=== PATIENT | female | born 1945 | race Caucasian/White ===

== ENCOUNTER 2017-02-14 13:01 | Outpatient (CLI) | payer MEDICARE, OTHER ==
[2017-02-14] MEDS ORDERED: BUFFERED LIDOCAINE 10 ML SYRINGE IU ONE (15:29)
--- NOTE | 2017-02-19 14:18 | Ultrasound Report ---
THERAPEUTIC ULTRASOUND-GUIDED ABDOMINAL PARACENTESIS: 02/14/2017 COMPARISON: No comparison at this facility. INDICATION: Breast cancer. Abdominal ascites. TECHNIQUE - FINDINGS Risks and benefits of the procedure were discussed with the patient, and she desired to proceed. A timeout was performed which identified the patient's name and date of with largest pocket of fluid seen in the right lower quadrant. The patient was prepped and draped in normal sterile fashion. Using a 4-Urdu Lnud-H-Dgqfiien device, 1175 mL serosanguineous fluid was removed from the abdomen. Trace blood loss during the procedure. There were no immediate complications and the patient was discharged to home. IMPRESSION: SUCCESSFUL PARACENTESIS. MTDD
== END 2017-02-14 13:02 | disposition home or self-care (01) ==
LOC: DI 13:01
PROVIDERS: ATTEND Nurse Practitioner Adult Health
DX: R18.8 Other ascites (principal); C50.919 Malignant neoplasm of unspecified site of unspecified female breast
CPT/HCPCS: 49083

== ENCOUNTER 2017-02-15 07:43 | Outpatient (CLI) | payer MEDICARE, OTHER ==
--- NOTE | 2017-02-15 12:38 | MRI Report ---
EXAM: MRI BRAIN WITHOUT CONTRAST EXAM DATE: 02/15/2017 09:09 AM. CLINICAL HISTORY: Abnormal gait, inability to walk. Memory loss. Breast cancer. Renal failure, estima sadia GFR 20. COMPARISON: None. TECHNIQUE: Multiplanar, multisequence T1-weighted and fluid-sensitive MR sequences of the brain were performed. Sequences optimized for routine evaluation. Other: None. IV Contrast: None. FINDINGS: Brain Volume: Mild diffuse atrophy. Parenchyma/Dura: No restricted diffusion to suggest acute or recent ischemic infarct. 4 mm subcortical nodular focus of hypointensity on the gradient echo sequence without associated andrea a or mass effect. This is nonspecific. A chronic microhemorrhage is suspected. No other evidence for cerebral hemorrhage. No mass effect, midline shift or abnormal subdural fluid collection. Moderately prominent nonspecific white matter disease. There is extensive amorphous abnormal T2 hyper intensity in the isacc. There are multiple scattered patchy and nodular foci of T2 hyperintense signal changes in the deep and periventricular white matter of both cerebral hemispheres. There is, however, no clear evidence for focal vasogenic edema or space-occupying intracranial mass. T2 hyperintense signal changes are nonspecific and brain tumor/metastasis cannot be completely ruled out but findings are not typical of metastatic disease though MRI follow-up may be considered to assu re stability of white matter disease that is likely secondary to aging and chronic microangiopathy. Ventricles/Cisterns: No hydrocephalus. No abnormal extra-axial fluid collection or hemorrhage. Sinuses: No evidence for acute paranasal sinus disease. Minimal nonspecific right lateral mastoid flu id signal. Bones: No evidence for expansile mass in the calvarium. Marrow signal in the skull; however, is somew hat heterogeneous. This is nonspecific. Pathologic marrow signal replacement in the skull is difficul t to fully rule out. Note that there is also a region of asymmetric T2 hyperintensity in the right la teral skull that might correspond to the region of subtle asymmetric increased tracer accumulation on recent whole body bone scan localizing to the upper right lateral calvarial region. Other: The major arterial skull base flow voids are present. IMPRESSION: 1.No evidence for acute intracranial abnormality. 2. Prominent white matter disease, more likely from aging and chronic microangiopathy than tumor but follow-up could be considered to establish stability. 3. Tumor metastasis to the calvarium not ruled out. [facility] Referring Provider Line: [phone] SITE ID: [id number]
== END 2017-02-15 07:44 | disposition home or self-care (01) ==
LOC: DI 07:43
PROVIDERS: ATTEND Internal Medicine Hematology & Oncology
DX: R41.3 Other amnesia (principal); R26.9 Unspecified abnormalities of gait and mobility; R90.82 White matter disease, unspecified
CPT/HCPCS: 70551

== ENCOUNTER 2017-02-26 06:09 | Day surgery (SDC) | payer MEDICARE, OTHER ==
[2017-02-26] MEDS ORDERED: ceFAZolin 2 GM/50 ML 2 GM/50 ML BAG IV ONE (06:32)
[2017-02-26] MEDS ORDERED: LACTATED RINGERS 1,000 ML IV ONE (06:40)
[2017-02-26] MEDS ORDERED: BUPIVACAINE 0.5% PF 30 ML VIAL SUBQ ONE ×2 (07:41→08:27)
--- NOTE | 2017-02-26 08:43 | OPERATIVE REPORT ---
Operative Report - General Procedure Date: 02/26/17 Planned Procedure: Portacath placement Pre-Op Diagnosis: Stage IV breast cancer Procedure Performed: Portacath placement (LEFT subclavian vein) Post Op Diagnosis: Same - Procedure Note Primary Surgeon: Butch Renteria MD Anesthesia Provider: Butch Gordon MD Anesthesia Technique: General ET tube, Local (5 mL 1/2% marcaine) IV Fluids (mL): 500 Estimated Blood Loss (mL): 5 Complications: None. - Other Other Information/Narrative: OPERATIVE DESCRIPTION/REPORT: After verbal and written informed consent was obtained detailing the risks of infection, bleeding requiring transfusion with its risks, nerve injury, and , and after I met with the patient confirming the surgery and the site of the surgery and after initialing the site of the surgery with a surgical marker , the patient was brought to the operative suite and placed supine on the operating table. Great care was taken to avoid pressure points to prevent pressure necrosis or nerve injury. Monitoring devices were applied along with TEDs and pneumatic compressive stockings (to prevent DVT). The patient received preoperative antibiotics for surgical prophylaxis. Dr. Butch Gordon sedated and anethetized the patient for the entire procedure. The patient was prepped and draped in the usual sterile manner. With the patient draped my initials were clearly visible. A "time in" then confirmed that the patient was identified with 3 identifiers (name, date and medical record number), the history and physical was in the chart, the signed consent confirming the procedure was in the chart, the patient was in the correct position, the aforementioned prophylactic measures were in place or given, we had the correct personnel and equipment to complete the procedure and that anesthesia, surgery and nursing were given an opportunity to express any concerns. With the agreement of everyone in the room, we proceeded with the operation. After the subclavian region was anesthetized using % marcaine and the patient placed in Trendelenberg position, an [employer] Smartport kit ( Catalog #[id number], Lot #[id number]) was opened. The finder needle was inserted into the subclavian vein taking great care to place it just under the clavicle in order to minimize the risk of pneumothorax. When good venous blood return was obtained, the wire was placed through the needle and into the vein without difficulty. Cardiac irritability confirmed that the catheter was correctly going down towards the heart. Below and lateral to the needle insertion site, the area was anesthetized again using % marcaine and a transverse incision was made just large enough to accommodate the port. This incision was taken down to the fascia using sharp dissection and the area for the port was created using blunt downward dissection. Meticulous hemostasis was obtained using Bovie electrocautery. A knife was inserted along the wire to widen the insertion site and this was further dilated using a Nataliia. The port was flushed with heparinized saline and placed in the pouch and the catheter was then passed to the needle opening using the passer. The catheter was then measured against the patients anterior chest and cut so that the tip would lie 2 cm below the manubrial-sternal junction. The port was secured to the fascia using a 3-0 Prolene on the side of the opening of the port. The catheter was then wiped and wrapped with a heparinized soaked 4x4. The dilator and sheath were then carefully inserted over the wire and the dilator and wire withdrawn. The catheter was then inserted into the sheath and the sheath was broken away from the catheter leaving the catheter in place in the vein. An X-ray confirmed placement of the catheter tip in the right atrium/supracardiac vena cava without pneumothorax. Using a Hueber needle the port was accessed and good blood return as well as easy flush was noted. The subcutaneous tissue was approximated using 3-0 Vicryl and the skin incisions were approximated with 4-0 Monocryl in a subcuticular fashion. The skin prep was washed off and prepped with benzoin. Steristrips were applied. At this point a time out was performed that confirmed that all the counts were correct, the procedure that was performed, the blood loss, the IV fluids administered, and the patients condition. A dressing was placed on the wound. Having tolerated the procedure well, the patient was taken to short stay in good and stable condition. The patient was instructed that the Portacath could be used immediately.
[2017-02-26] MEDS ORDERED: ePHEDrine 50 MG/ML VIAL IVP ONE (08:45)
[2017-02-26] MEDS ORDERED: PROPOFOL 200 MG/20 ML VIAL IVP ONE (08:45)
[2017-02-26] MEDS ORDERED: fentaNYL 100 MCG/2 ML VIAL IVP ONE (08:45)
--- NOTE | 2017-02-26 08:56 | XRAY Preliminary Report ---
Exam: XR CHEST FOR LINE PLACEMENT IMPRESSION: 1. Increased opacification of the left hemithorax, presumably representing pleural fluid. 2. Pulmonary vascular distention and smaller right pleural effusion. 3. Left chest port with distal catheter tip projecting over the right pulmonary hilum. The patient is rotated leftward and this is presumably projectional. [facility] SITE ID: [id number]
--- NOTE | 2017-02-26 08:58 | XRAY Report ---
EXAM: CHEST RADIOGRAPHY EXAM DATE: 02/26/2017 08:36 AM. CLINICAL HISTORY: PORT PLACEMENT . COMPARISON: 02/12/2017. TECHNIQUE: 1 view. FINDINGS: Lungs/Pleura: Compared to the prior exam, there is increased opacification of the left hemithorax. In the right lung, there are is pulmonary vascular distention. There is a small right pleural effusion. No pneumothorax appreciated. Mediastinum: The cardiac and mediastinal silhouettes are largely obscured by opacification of the lef t hemithorax. Other: Left chest port with distal catheter tip projecting over the right pulmonary hilum. Partially visualized bilateral ureteral stents. Surgical clips in the left axilla. IMPRESSION: 1. Increased opacification of the left hemithorax, presumably representing pleural fluid. 2. Pulmonary vascular distention and smaller right pleural effusion. 3. Left chest port with distal catheter tip projecting over the right pulmonary hilum. The patient is rotated leftward and this is presumably projectional. [facility] Referring Provider Line: [phone] SITE ID: [id number]
[2017-02-26 10:59] VITALS: BP 112/95
== END 2017-02-26 06:10 | disposition home or self-care (01) ==
LOC: SDS 06:09
PROVIDERS: ATTEND Surgery
PROC: 05H633Z Insertion of Infusion Device into Left Subclavian Vein, Percutaneous Approach (ICD-10-PCS; principal; 2017-02-26 07:30)
DX: C50.919 Malignant neoplasm of unspecified site of unspecified female breast (principal); C78.6 Secondary malignant neoplasm of retroperitoneum and peritoneum; Z79.82 Long term (current) use of aspirin; I10 Essential (primary) hypertension
CPT/HCPCS: 36561; C1788; J0690; J7120; 71010

== ENCOUNTER 2017-03-02 08:05 | Outpatient (CLI) | payer MEDICARE, OTHER | END 2017-03-02 08:06 | disposition E | LOC: EMS 08:05 | PROVIDERS: ATTEND Surgery ==